=== PATIENT | female | born 1990 | race Caucasian/White ===

== ENCOUNTER 2017-04-07 15:32 | Inpatient (IN) | payer BC, OTHER ==
[~2017-04-07] VITALS: Ht 160 cm; Wt 49.9 kg
[2017-04-07 16:15] LABS: *URINE HCG, QUAL NEGATIVE (NEGATIVE)
[2017-04-07 16:39] LABS: *AMPHETAMINE, URINE NEGATIVE (NEGATIVE); *BARBITURATE, URINE NEGATIVE (NEGATIVE); *CANNABINOID, URINE NEGATIVE (NEGATIVE); *COCCAINE, URINE NEGATIVE (NEGATIVE); *OPIATE, URINE POSITIVE (NEGATIVE); *PHENCYCLIDINE SCREEN,URINE NEGATIVE (NEGATIVE)
--- NOTE | 2017-04-07 16:43 | NUR ---
PRE ASSESSMENT NOTE: 22 yo female presents to [facility] with Heroin, Xanax and Meth dependence. Pt is alert and oriented X4. Color good, skin warm and dry. Respirations even and unlabored. B/P 112/77 P 94 RR 16 T 98.3 Pulse OX 97% Pt has a hx of anxiety and depression, but does not take medication. Also has pacemaker due to congenital heart block. Pt is allergic to PCN and Amox. Denies seizure history.
[2017-04-07 16:50] VITALS: BP 112/77
--- NOTE | 2017-04-07 17:00 | NUR ---
ADMISSION NOTE: 26 yo female admitted to [facility] with Heroin, Xanax and Methamphetamine dependence. Pt is alert and oriented X4. Color good, skin warm and dry. Respirations even and unlabored. Pt states she is allergic to PCN and Amoxicillin. Pt states she has a pacemaker due to congenital heart block. Also states she has anxiety and depression. Pt has numerous abscesses on bilateral forearms. Closed. Otherwise, skin is intact. Denies having a PCP or Psychiatrist. Denies seizure history. Pt is 5 feet 3 inches tall and weighs 110. Vital signs: B/P 112/77 P 94 RR 16 T 98.2 Pulse OX 97% Substance Use: Heroin: 2g/day IV daily for 5 years. Last use this AM 1gm IV Xanax: 4mg/day X 5 years last use 04-06-17 2mg Methamphetamine: 1gm IV off and on for 10 years last use 04-06-17 0.2 gms Addendum: 04/07/17 at 1850 by CATIA RICARDO RN Initial COWS 4 CIWA 5
[2017-04-07] MEDS ORDERED: ACETAMINOPHEN 325 MG TABLET PO PRN (17:30)
[2017-04-07] MEDS ORDERED: DICYCLOMINE HCL 20 MG TABLET PO PRN (17:30)
[2017-04-07] MEDS ORDERED: HYDROXYZINE PAMOATE 25 MG CAPSULE PO PRN (17:30)
[2017-04-07] MEDS ORDERED: MAG HYDROX/AL HYDROX/SIMETH 30 ML LIQUID UDC PO PRN (17:30)
[2017-04-07] MEDS ORDERED: ONDANSETRON 4 MG/2 ML VIAL IM PRN (17:30)
[2017-04-07] MEDS ORDERED: MIRALAX 17 GM POWD.PACK PO PRN (17:30)
[2017-04-07] MEDS ORDERED: BUPRENORPHINE HCL 2 MG TAB.SUBL SL PRN (17:30)
[2017-04-07] MEDS ORDERED: LOPERAMIDE HCL 2 MG CAPSULE PO PRN ×2 (17:30)
[2017-04-07] MEDS ORDERED: ONDANSETRON ODT 4 MG TAB.RAPDIS SL PRN (17:30)
[2017-04-07] MEDS ORDERED: MAGNESIUM HYDROXIDE 30 ML LIQUID UDC PO PRN (17:30)
[2017-04-07] MEDS ORDERED: LAMO200T PO (18:31)
[2017-04-07] MEDS ORDERED: FOLI1TAB16 PO (18:31)
[2017-04-07] MEDS ORDERED: ATOM40CA PO (18:31)
--- NOTE | 2017-04-07 18:50 | NUR ---
END OF SHIFT NOTE: Report given to athletic agent nurse. 26 yo female admitted to [facility] with Heroin, Xanax and Methamphetamine dependence. Pt is alert and oriented X4. Color good, skin warm and dry. Respirations even and unlabored. Pt states she is allergic to PCN and Amoxicillin. Pt states she has a pacemaker due to congenital heart block. Also states she has anxiety and depression. Pt has numerous abscesses on bilateral forearms. COWS 4 CIWA 5 @ 1700. Safety precautions observed. Call light within reach.
[2017-04-07 20:00] VITALS: BP 111/60
--- NOTE | 2017-04-07 20:00 | NUR ---
START OF SHIFT NOTE RECEIVED PATIENT IN ROOM, RESTING. PATIENT ALERT AND ORIENTED X 3. RESPIRATION EVEN AND UNLABORED. PATIENT REPORTS ANXIOUS, SWEATING, ABDOMINAL CRAMPING , NO N/V AND GENERALIZED BODY ACHES 05/05. RECEIVED REPORT FROM DAY SHIFT NURSE. PATIENT IS A 26 YEAR OLD FEMALE NEWLY ADMITTED FOR OPIATE/BENZO DEPENDENCE. PATIENT IS ON 1ST DAY OF HER 5 DAY ATIVAN TAPER AND WILL START 5 DAY SUBUTEX TOMORROW. PATIENT IS FULL CODE, REGULAR DIET AND ALLERGIC TO PENICILLIN AND AMOXICILLIN. PATIENT REPORTS PMH OF HAVING PACEMAKER , ANXIETY AND DEPRESSION . PATIENT IS ON FALL PRECAUTION. PATIENT HAD ABSCESS ON BILATERAL FOREARMS WHICH SHE'S ON BACTIM ANTIBIOTIC. PATIENT DID NOT REQUIRE ANY PRN MEDICATION DURING THE DAY. LAST COWS 4 AND CIWA 5. SAFETY MEASURES IN PLACE. CALL LIGHT IN REACH. WILL CONTINUE TO MONITOR
--- NOTE | 2017-04-07 20:28 | NUR ---
PRN ROBAXIN ADMINISTRATION PATIENT C/O GENERALIZED BODY ACHES 05/05. PRN ROBAXIN GIVEN. WILL MONITOR FOR EFFECTIVENESS
[2017-04-07] MEDS: METHOCARBAMOL 750 MG TABLET PO PRN (20:38)
[2017-04-07] MEDS: GABAPENTIN 300 MG CAPSULE PO SCH (20:38)
[2017-04-07] MEDS: SULFAMETH/TRIMETH 800/160 MG TABLET PO SCH (20:39)
[2017-04-07] MEDS: LACTOBACILLUS RHAMNOSUS GG 1 EACH CAPSULE PO SCH (20:39)
[2017-04-07] MEDS ORDERED: LORAZEPAM 1 MG TABLET PO SCH (21:00)
--- NOTE | 2017-04-07 21:28 | NUR ---
PRN ROBAXIN RE-ASSESSMENT PATIENT REPORTS ROBAXIN HELPFUL. PAIN 2/10, TOLERABLE. WILL CONTINUE TO MONITOR.
[2017-04-08] VITALS: BP 93/56
[2017-04-08 04:00] VITALS: BP 92/51
--- NOTE | 2017-04-08 07:35 | NUR ---
END OF SHIFT NOTE MONITORED PATIENT THROUGHOUT THE NIGHT. PATIENT REMAIN ALERT AND ORIENTED X 3. RESPIRATION RECEIVED PATIENT IN ROOM MOST OF THE SHIFT. PATIENT REPORTED ANXIOUS, SWEATING, ABDOMINAL CRAMPING , NO N/V AND GENERALIZED BODY ACHES 10 DURING SHIFT. PATIENT WAS PLACED ON IS ON 5 DAY ATIVAN TAPER AND WILL START 5 DAY SUBUTEX. FIRST ATIVAN GIVEN DURING SHIFT. PATIENT IS FULL CODE, REGULAR DIET AND ALLERGIC TO PENICILLIN AND AMOXICILLIN. PATIENT REPORTS PMH OF HAVING PACEMAKER , ANXIETY AND DEPRESSION . PATIENT IS ON FALL PRECAUTION. PATIENT HAD ABSCESS ON BILATERAL FOREARMS WHICH SHE'S ON BACTRIM ANTIBIOTIC WITH NO ADVERSE REACTION NOTED. ENCOURAGE FLUIDS. PATIENT WAS GIVEN PRN ROBAXIN AT 2037, EFFECTIVE. LAST COWS 2 AND CIWA 1. SAFETY MEASURES IN PLACE. CALL LIGHT IN REACH. WILL CONTINUE TO MONITOR. SLEPT 10 HOURS. FLUID INTAKE 795 ML. VOIDED X 1. NO BM.
[2017-04-08 08:00] VITALS: BP 102/63
--- NOTE | 2017-04-08 08:00 | NUR ---
START OF SHIFT Received pt this AM aox4. Patient lying in bed and states "I don't feel good, I feel sick." Patient on 5 day Ativan/ 5 day Subutex taper. COWS 9 CIWA 6 this AM at 0800. Patient presents with flat affect and congruent mood. Patient has closed abscesses on bilat forearms and is getting Bactrim for treatment. Patient slept 10 hours. Patient was given PRN Robaxin per evening or night nurse supervisor with effectiveness. Encouraged pt to increase fluids to facilitate detox. Will provide safe and supportive environment. Patient in bed with bed locked and in lowest position and call watters in reach. Will monitor
[2017-04-08] MEDS ORDERED: TUBERCULIN,PURIF.PROT.DERIV. 5 TU/0.1 ML TEST ID ONE (09:00)
[2017-04-08] MEDS: SULFAMETH/TRIMETH 800/160 MG TABLET PO SCH ×2 (09:41→20:32)
[2017-04-08] MEDS: GABAPENTIN 300 MG CAPSULE PO SCH ×2 (09:41→20:33)
[2017-04-08] MEDS: LORAZEPAM 1 MG TABLET PO SCH ×4 (09:41→20:33)
[2017-04-08] MEDS: BUPRENORPHINE HCL 2 MG TAB.SUBL SL SCH ×4 (09:41→20:33)
[2017-04-08] MEDS: LACTOBACILLUS RHAMNOSUS GG 1 EACH CAPSULE PO SCH ×2 (09:41→20:32)
[2017-04-08] MEDS: MULTIVITAMINS,THERAPEUTIC TABLET PO SCH (09:42)
[2017-04-08 12:00] VITALS: BP 98/64
[2017-04-08 16:00] VITALS: BP 99/64
--- NOTE | 2017-04-08 18:40 | NUR ---
END OF SHIFT NOTE Patient continues on 4 day Ativan taper and started on 5 day Subutex taper this shift. Patient presents with closed abscesses on bilat forearms. Patient on Bactrim abx for treatment. Order to apply warm compress to LUE hourly if possible for 15-20 min was endorsed to hourly shift manager. Lab came to draw blood from patient and was unsuccessful, notified. Last CIWA 7 COWS 8. Patient did not attend any groups or activities this shift. All needs have been met. Safety measures in place. Will pass shift report to night nurse.
[2017-04-08 20:00] VITALS: BP 106/60
--- NOTE | 2017-04-08 20:00 | NUR ---
START OF SHIFT NOTE PATIENT IN HER ROOM RESTING. PATIENT REPORTS GENERALIZED BODY ACHES, 6/10, SWEATING, ANXIETY . NO N/V, STUFFY NOSE, MOIST EYES AND TREMORS CAN BE FELT BUT NOT OBSERVE. RECEIVED REPORT FROM DAY SHIFT NURSE. PATIENT IS A 26 YEAR OLD FEMALE, ADMITTED FOR OPIATE/BENZO DEPENDENCE. PATIENT IS ON 5 DAY ATIVAN AND 5 DAY SUBUTEX TAPER. PATIENT IS FULL CODE, REGULAR DIET AND ALLERGIC TO AMOXICILLIN AND PENICILLIN. PATIENT IS ANTIBIOTIC FOR ABSCESSES ON BILATERAL ARMS. PATIENT IN HER ROOM MOST OF THE DAY. PATIENT DID NOT REQUIRE ANY PRN MEDICATION. LAST CIWA 7 AND COWS 8. SAFETY MEASURES IN PLACE. CALL LIGHT IN REACH. WILL CONTINUE TO MONITOR.
[2017-04-08] MEDS: METHOCARBAMOL 750 MG TABLET PO PRN (20:33)
--- NOTE | 2017-04-08 20:33 | NUR ---
PRN ROBAXIN ADMINISTRATION PATIENT REPORTS GENERALIZED BODY ACHES 5/10. PRN ROBAXIN GIVEN . WILL MONITOR FOR EFFECTIVENESS
--- NOTE | 2017-04-08 20:44 | NUR ---
PRN CLONIDINE , VISTARIL AND BENADRYL ADMINISTRATION PATIENT REPORTS ANXIETY, NOTED EMOTIONAL , DEPRESSED AND UNABLE TO SLEEP. PRN CLONIDINE , VISTARIL AND BENADRYL GIVEN. WILL MONITOR FOR EFFECTIVENESS
--- NOTE | 2017-04-08 21:33 | NUR ---
PRN ROBAXIN RE-ASSESSMENT PATIENT STATES ROBAXIN IS HELPFUL. PAIN LEVEL 2/10, TOLERABLE. WILL CONTINUE TO MONITOR
--- NOTE | 2017-04-08 21:44 | NUR ---
PRN CLONIDINE, VISTARIL,BENADRYL RE-ASSESSMENT PATIENT IN BED WITH EYES CLOSED. NO S/S OF DISTRESS. RESPIRATION EVEN AND UNLABORED. SAFETY MEASURES IN PLACE. CALL LIGHT IN REACH. WILL CONTINUE TO MONITOR
[2017-04-08] MEDS: CLONIDINE HCL 0.1 MG TABLET PO PRN (22:44)
[2017-04-08] MEDS: diphenhydrAMINE 50 MG CAPSULE PO PRN (22:44)
[2017-04-09] VITALS: BP 114/75
[2017-04-09 04:00] VITALS: BP 90/57
--- NOTE | 2017-04-09 07:15 | NUR ---
END OF SHIFT NOTE PATIENT REPORTED GENERALIZED BODY ACHES, 6/10, SWEATING, ANXIETY . NO N/V, STUFFY NOSE, MOIST EYES AND TREMORS CAN BE FELT BUT NOT OBSERVE DURING SHIFT. PATIENT CONTINUE ON 5 DAY ATIVAN AND 5 DAY SUBUTEX TAPER, TOLERATED WELL. PATIENT IS ANTIBIOTIC FOR ABSCESSES ON BILATERAL ARMS WITH NO ADVERSE REACTION NOTED AND WAS SEEN BY DR. LOZADA. PER DR. LOZADA TO CONTINUE WARM MOIST COMPRESS . PATIENT WAS GIVEN PRN ROBAXIN AT 2032. AT 2243, PATIENT C/O ANXIETY, EMOTIONAL AND UNABLE TO SLEEP. PRN VISTARIL, CLONIDINE AND BENADRYL GIVEN, ALL EFFECTIVE. ON FALL PRECAUTION. SAFETY MEASURES IN PLACE. CALL LIGHT IN REACH. WILL CONTINUE TO MONITOR. SLEPT 9 HOURS. FLUID INTAKE 547 ML. VOIDED X 1. NO BM. LAST COWS 1 AND CIWA 1 .
--- NOTE | 2017-04-09 07:40 | NUR ---
START OF SHIFT Received pt this AM aox4. Patient lying in bed and appears very fatigued. Patient on 5 day Ativan/ 5 day Subutex taper. COWS 1 CIWA 1 per night nurse. Patient presents with flat affect and congruent mood. Patient has closed abscesses on bilat forearms and is getting Bactrim for treatment and warm compresses need to be applied per Dr. Thurston. Patient slept 9 hours. Patient was given PRN Robaxin, Clonidine, Vistaril, and Benadryl per power and recovery shift engineer with effectiveness. Encouraged pt to increase fluids to facilitate detox. Encouraged pt to attend groups and activities. Will provide safe and supportive environment. Patient in bed with bed locked and in lowest position and call watters in reach. Will monitor
[2017-04-09 08:00] VITALS: BP 98/61
[2017-04-09] MEDS: MULTIVITAMINS,THERAPEUTIC TABLET PO SCH (09:51)
[2017-04-09] MEDS: LORAZEPAM 1 MG TABLET PO SCH ×3 (09:52→21:21)
[2017-04-09] MEDS: GABAPENTIN 300 MG CAPSULE PO SCH ×2 (09:52→21:21)
[2017-04-09] MEDS: SULFAMETH/TRIMETH 800/160 MG TABLET PO SCH ×2 (09:52→21:21)
[2017-04-09] MEDS: BUPRENORPHINE HCL 2 MG TAB.SUBL SL SCH ×3 (09:52→21:20)
[2017-04-09] MEDS: LACTOBACILLUS RHAMNOSUS GG 1 EACH CAPSULE PO SCH ×2 (09:52→21:21)
--- NOTE | 2017-04-09 09:54 | NUR ---
Warm compress applied to patient's bilateral abscesses. Patient aware to leave it applied for 20 minutes. Will continue to monitor.
[2017-04-09 10:54] LABS: BASOPHILS % (AUTO) 0.5 % (0.0-2.0); EOSINOPHILS % (AUTO) 0.3 % (0.0-7.0); HEMATOCRIT 39.7 % (37-47); HEMOGLOBIN 13.7 G/DL (12.0-16.0); LYMPHOCYTES # (AUTO) 1.9 K/UL (0.8-4.8); LYMPHOCYTES % (AUTO) 37.8 % (20.5-51.5); MEAN CORPUSCULAR HEMOGLOBIN 31.1 UUG (27.0-31.0); MEAN CORPUSCULAR HGB CONC 35 g/dL (32.0-37.0); MEAN CORPUSCULAR VOLUME 90.3 FL (81.0-99.0); MONOCYTES # (AUTO) 0.3 K/UL (0.1-1.30); MONOCYTES % (AUTO) 5.7 % (0.0-11.0); NEUTROPHILS # (AUTO) 2.8 K/UL (1.8-8.9); NEUTROPHILS % (AUTO) 55.7 % (38.5-71.5); PLATELET COUNT (AUTO) 262 K/UL (150-450); RED CELL DISTRIBUTION WIDTH 11.9 % (11.5-14.5)
[2017-04-09 11:02] LABS: ALBUMIN 3.5 g/dL (3.4-5.0); BILIRUBIN,TOTAL 0.3 mg/dL (0.2-1.0); CALCIUM 8.7 mg/dL (8.5-10.1); CREATININE 1.1 mg/dL (0.6-1.3); MAGNESIUM 1.9 mg/dL (1.8-2.4); POTASSIUM 4.2 mmol/L (3.5-5.1)
[2017-04-09 12:00] VITALS: BP 105/60
--- NOTE | 2017-04-09 12:22 | NUR ---
PACEMAKER CHECK CRISTHIAN FROM [employer] HERE TO ASSESS PATIENTS PACEMAKER Addendum: 04/09/17 at 1238 by CATHY GRACE RN Cristhian from [facility] pacemaker is good and has 3.5 years left. Will notify borderer Dr. Preston
[2017-04-09 12:49] LABS: HIV-1 p24 ANTIGEN NON REACTIVE (NONREACTIVE); HIV-1/2 ANTIBODY NON REACTIVE (NONREACTIVE)
[2017-04-09 13:00] LABS: THYROID STIMULATING HORMONE 0.771 mIU/mL (0.358-3.740)
[2017-04-09 16:00] VITALS: BP 97/60
[2017-04-09] MEDS ORDERED: LORAZEPAM 1 MG TABLET PO ONE (18:00)
--- NOTE | 2017-04-09 18:51 | NUR ---
END OF SHIFT NOTE Patient continues on 4 day Ativan taper and 5 day Subutex taper tolerated well. Patient presents with closed abscesses on bilat forearms. Patient on Bactrim abx for treatment. Applied warm compress to LUE as ordered. Rep from [employer] came to assess patients pacemaker with normal findings,. notified. Last CIWA 8 COWS 6. Patient did not attend any groups or activities this shift. All needs have been met. Safety measures in place. Will pass shift report to night nurse.
--- NOTE | 2017-04-09 18:51 | NUR ---
START OF SHIFT NOTE: Patient endorsed by day shift nurse. SBAR report received. Patient is a 26 year old female admitted to [facility] for Benzodiazepines, Opioid, and Methamphetamines Dependence, placed on 5 Day Ativan Taper and 5 Day Subutex Taper started on 04/08/2017. Patient reports allergies to Penicillin. Regular diet, placed on Full Code, Fall Precautions. Patient denies Seizures History. Patient denies SI/HI. PMH: Pacemaker r/t Congenital Heart Block; Anxiety, Depression. Patient reports Recent Hospitalization/Treatment at" [facility]", [place], 2014; "[facility]", [place] , 2017. Upon endorsement patient is A&Ox4. Speech is clear and soft. CIWA = 8, COWS = 6: Patient reports anxiety, nervousness, sweats , bone aches, tremors that can't felt. . Patient denies N/V, and diarrhea. VS: T:98'1; HR:83; RR: 18; Room Air SPO2 100%; Low back pain level "5/10". Respirations are even and unlabored. Patient denies SOB, cough and chest pain. Bowel Sounds are active in all 4 quadrants. Last BM was "04/09/17, in the morning". Abdomen is soft and non-distended, non-tender. Skin is warm and moist by touch. Patient has abscesses on the Left and Right upper extremities. Warm compresses applied and Bactrim PO administrated as ordered. Patient remains compliant with medications and diet regime. Encouraged fluid intake, as tolerated. Encouraged to attend activities. Education provided on Hand Washing and Smoking Cessation. Patient verbalizes understanding. Patient did not Safety measures in the place by hospital policy: call light within reach, bed in the lowest position and locked, bed padded rails up x2. Will continue to monitor closely.
[2017-04-09 20:00] VITALS: BP 107/62
[2017-04-09] MEDS: diphenhydrAMINE 50 MG CAPSULE PO PRN (21:21)
[2017-04-10] VITALS: BP 90/50
[2017-04-10 04:00] VITALS: BP 86/42
--- NOTE | 2017-04-10 07:10 | NUR ---
END OF SHIFT NOTE: Patient endorsed to day shift nurse. SBAR report given. Patient is a 26 year old female admitted to [facility] for Benzodiazepines, Opioid, and Methamphetamines Dependence, placed on 5 Day Ativan Taper and 5 Day Subutex Taper started on 04/08/2017. Patient reports allergies to Penicillin. Regular diet, placed on Full Code, Fall Precautions. Patient denies Seizures History. Patient denies SI/HI. PMH: Pacemaker r/t Congenital Heart Block; Anxiety, Depression. Patient reports Recent Hospitalization/Treatment at" [facility]", [place], 2015; "[facility]", [place] , 2017. Upon endorsement patient is A&Ox4. Speech is clear and soft. CIWA decreased from 6 to 4; , COWS decreased from 5 to 3: Patient presented with anxiety, nervousness, sweats , bone aches, tremors that can't felt, and headache. Patient denies N/V, and diarrhea. Patient denies SI/HI. Respirations are even and unlabored. Patient denies SOB, cough and chest pain. Skin is warm and moist by touch. Patient has abscesses on the Left and Right upper extremities. Warm compresses applied and Bactrim PO administrated as ordered. Patient has ordered procedure for Incision and drainage of left Upper Extremity Abscess. Consent signed by patient . Patient remains compliant with medications and diet regime. Encouraged fluid intake, as tolerated. Encouraged to attend activities. ". Last shift CIWA decreased from 6 to 3; COWS decreased from 5 to 3: Patient presented with anxiety, agitation, nervousness, sweats , bone aches, tremors that can't felt, and headache. Patient denies N/V, and diarrhea. VS WNL. Respirations are even and unlabored. Patient denies SOB, cough and chest pain Patient remains compliant with the treatment plan. Pt denies nausea, vomiting and diarrhea. PRN Benadryl PO given during film processing shift supervisor and was effective: Patient slept 8 hours. VS remains WNL. Intake 2,355 ml, voided x 2. Safety measures in place, bed on lowest position with side rails x2 up for safety, call light within reach. Patient endorsed in stable condition to day shift nurse. Addendum: 04/11/17 at 0048 by VIRY MEJIA RN Patient presents with tremors that can felt.
[2017-04-10 08:00] VITALS: BP 103/61
--- NOTE | 2017-04-10 08:00 | NUR ---
START OF SHIFT Received pt this AM aox4. Patient lying in bed and appears very fatigued. Patient on 5 day Ativan/ 5 day Subutex taper. COWS 3 CIWA 4 per night nurse. Patient presents with flat affect and congruent mood. Patient has closed abscesses on bilateral forearms and is getting Bactrim for treatment and warm compresses need to be applied per Dr. Thurston. Consent signed for drainage procedure today. Patient slept 7.5 hours. No PRN given last night. Encouraged pt to increase fluids to facilitate detox. Encouraged pt to attend groups and activities. Will provide safe and supportive environment. Patient in bed with bed locked and in lowest position and call watters in reach. Will monitor
[2017-04-10] MEDS ORDERED: BUPRENORPHINE HCL 2 MG TAB.SUBL SL SCH (09:00)
[2017-04-10] MEDS: GABAPENTIN 300 MG CAPSULE PO SCH ×3 (09:07→20:34)
[2017-04-10] MEDS: SULFAMETH/TRIMETH 800/160 MG TABLET PO SCH ×2 (09:07→20:34)
[2017-04-10] MEDS: MULTIVITAMINS,THERAPEUTIC TABLET PO SCH (09:07)
[2017-04-10] MEDS: LACTOBACILLUS RHAMNOSUS GG 1 EACH CAPSULE PO SCH ×2 (09:07→20:34)
[2017-04-10] MEDS: LORAZEPAM 1 MG TABLET PO SCH ×4 (09:09→20:34)
[2017-04-10 11:07] LABS: HCV AB >11.0 s/co ratio (0.0-0.9); HEPATITIS B CORE AB, IgM Negative (Negative); HEPATITIS B SURFACE AG Negative (Negative)
[2017-04-10] MEDS: METHOCARBAMOL 750 MG TABLET PO PRN (11:55)
[2017-04-10 12:00] VITALS: BP 90/66
--- NOTE | 2017-04-10 12:00 | NUR ---
PRN MEDS PRN Robaxin given per pt request for body aches 04/04. Will reassess
--- NOTE | 2017-04-10 12:37 | NUR ---
PRN REASSESSMENT Patient states medication was helpful and body aches are now 0/10 will continue to monitor
[2017-04-10] MEDS: BACLOFEN 10 MG TABLET PO SCH ×2 (14:22→20:33)
[2017-04-10] MEDS: BUPRENORPHINE HCL 2 MG TAB.SUBL SL SCH ×2 (14:23→20:33)
[2017-04-10 16:00] VITALS: BP 98/67
--- NOTE | 2017-04-10 18:31 | NUR ---
END OF SHIFT NOTE Patient continues on 4 day Ativan taper and 5 day Subutex taper tolerated well. Patient presented with brighter affect during the day shift and socialized with peers. Patient presents with closed abscesses on bilateral forearms. Patient on Bactrim abx for treatment. Applied warm compress to LUE as ordered. Robaxin was given PRN for body aches with effectiveness. Last CIWA 7 COWS 6. TB test read and was negative. Patient attended group and activities this shift. All needs have been met. Safety measures in place. Will pass shift report to night nurse.
--- NOTE | 2017-04-10 18:31 | NUR ---
START OF SHIFT NOTE: Patient endorsed by day shift nurse. SBAR report received. Patient is a 26 year old female admitted to [facility] for Benzodiazepines, Opioid, and Methamphetamines Dependence, placed on 5 Day Ativan Taper and 5 Day Subutex Taper started on 04/08/2017. Patient reports allergies to Penicillin. Regular diet, placed on Full Code, Fall Precautions. Patient denies Seizures History. Patient denies SI/HI. PMH: Pacemaker r/t Congenital Heart Block; Anxiety, Depression. Patient reports Recent Hospitalization/Treatment at" [facility][1]", [place], 2015; "[facility]", [place] , 2017. Upon endorsement patient is A&Ox4. Speech is clear and soft. CIWA = 7, COWS = 7: Patient presents with anxiety, agitation, nervousness, sweats , body aches, tremors that can't felt. Patient denies N/V, and diarrhea. Patient denies SI/HI. VS stable. Knee pain level "3/10". Respirations are even and unlabored. Patient denies SOB, cough and chest pain. Bowel Sounds are active in all 4 quadrants. Last BM was "04/10/17, in the morning". Abdomen is soft and non-distended, non-tender. Skin is warm and moist by touch. Patient has abscesses on the Left and Right upper extremities. Warm compresses applied and Bactrim PO administrated as ordered. Patient remains compliant with medications and diet regime. Encouraged fluid intake, as tolerated. Encouraged to attend activities. Safety measures in the place by hospital policy: call light within reach, bed in the lowest position and locked, bed padded rails up x2. Will continue to monitor closely. Addendum: 04/11/17 at 0050 by VIRY MEJIA RN Patient presents with tremors that can felt.
[2017-04-10 20:00] VITALS: BP 114/70
[2017-04-10] MEDS: IBUPROFEN 600 MG TABLET PO PRN (20:42)
[2017-04-10] MEDS: diphenhydrAMINE 50 MG CAPSULE PO PRN (20:42)
--- NOTE | 2017-04-10 20:42 | NUR ---
PRN MOTRIN PO AND BENADRYL PO ADMINISTRATION Patient c/o "Knee pain 3/10" and insomnia. Patient was assessed. VS WNL. PRN Motrin PO and PRN Benadryl PO discussed with patient. Patient educated for actions, adverse reactions, and side effects of Motrin and Benadryl. Patient returned back knowledge by verbalizes understanding. PRN Motrin 600 mg PO and PRN Benadryl 50 mg PO administrated with full glass of water as ordered. Patient tolerated well. Safety measure in the place by hospital policy: Call light within reach, bed in the lowest position and locked, padded rails up x2. Will continue to monitor closely.
--- NOTE | 2017-04-10 21:42 | NUR ---
REASSESSMENT Patient is sleeping. Breathing is even and unlabored. RR: 14. PRN PRN Motrin PO and PRN Benadryl PO were effective. Safety measure in the place by hospital policy: Call light within reach, bed in the lowest position and locked, padded rails up x2. Will continue to monitor closely.
[2017-04-11] VITALS: BP 95/50
[2017-04-11 04:00] VITALS: BP 91/60
--- NOTE | 2017-04-11 05:41 | NUR ---
PRN ROBAXIN ADMINISTRATION PATIENT C/O PAIN ON LEFT UE S/P I&D. 04/04. PRN ROBAXIN GIVEN . WILL MONITOR FOR EFFECTIVENESS
[2017-04-11] MEDS: METHOCARBAMOL 750 MG TABLET PO PRN ×2 (06:57→15:02)
--- NOTE | 2017-04-11 06:57 | NUR ---
PRN ROBAXIN ADMINISTRATION Patient c/o muscle spasm and requested Robaxin. PRN Robaxin administrated as ordered with full glass of water. Patient tolerated well. Safety measure in the place by hospital policy. Call light within reach, bed in the lowest position and locked, padded rails up x2. Will monitor closely.
--- NOTE | 2017-04-11 07:12 | NUR ---
END OF SHIFT NOTE: Patient endorsed to day shift nurse in stable condition. Report given. Patient is a 26 year old female admitted to [facility] for Benzodiazepines, Opioid, and Methamphetamines Dependence, placed on 5 Day Ativan Taper and 5 Day Subutex Taper started on 04/08/2017. Patient reports allergies to Penicillin and Regular diet Patient placed on Full Code, Fall Precautions. Patient denies Seizures History. During last warehouse supervisor 3rd shift CIWA decreased from 7 to 3, COWS decreased from 7 to 3. Patient presented with withdrawal s/s of anxiety, agitation, nervousness, sweats , body aches, tremors that can be felt, and mild headache. Patient denies N/V, and diarrhea. Patient denies SI/HI. VS at 04:00: T: 98'4; HR: 82; RR: 12; RA O2Sat: 98%; BP: 91/60; Pain level: "0/10". Respirations are even and unlabored. Patient denies SOB, cough and chest pain. Skin is warm and moist by touch. Patient has abscesses on the Left and Right upper extremities. Warm compresses applied, and Bactrim PO administrated as ordered. Ordered procedure for Incision and drainage of left Upper Extremity Abscess done by Dr. Bertrand ELAM. Consent was signed by patient before procedure. Patient tolerated well. Patient remains compliant with medications and diet regime. Encouraged fluid intake, as tolerated. Encouraged to attend activities. PRN Benadryl PO and PRN Motrin PO administrated to patient as ordered, and were effective. PRN Robaxin PO administrated at 06:57. Day shift nurse notified, and patient will reassessed by Day shift nurse. Patient slept 7 hours. Intake 2,210 ml, voided x 2. Safety measure in the place by hospital policy. Call light within reach, bed in the lowest position and locked, padded rails up x2.
[2017-04-11 08:00] VITALS: BP 94/53
[2017-04-11] MEDS: GABAPENTIN 300 MG CAPSULE PO SCH ×3 (09:57→21:16)
[2017-04-11] MEDS: LACTOBACILLUS RHAMNOSUS GG 1 EACH CAPSULE PO SCH ×2 (09:57→21:17)
[2017-04-11] MEDS: MULTIVITAMINS,THERAPEUTIC TABLET PO SCH (09:57)
[2017-04-11] MEDS: SULFAMETH/TRIMETH 800/160 MG TABLET PO SCH ×2 (09:57→21:17)
[2017-04-11] MEDS: BACLOFEN 10 MG TABLET PO SCH ×3 (09:57→21:17)
--- NOTE | 2017-04-11 10:00 | NUR ---
START OF SHIFT Received report from restaurant shift supervisor nurse. Received patient laying in bed. Patient is 26 year old female admitted for medically supervised withdrawal from heroin and alprazolam. Patient is full code, allergic to penicillin, amoxicillin. On fall precaution. On 5 Day Ativan and 5-Day Subutex taper. On assessment this AM: CIWA: 4 and COWS: 3. Patient reports body aches and anxiety. Ativan and Subutex po given as ordered. Med compliant. Patient was encouraged to attend group meetings today. Will continue to monitor patient.
[2017-04-11] MEDS: BUPRENORPHINE HCL 2 MG TAB.SUBL SL SCH ×3 (10:02→21:17)
[2017-04-11] MEDS: LORAZEPAM 1 MG TABLET PO SCH ×3 (10:03→21:16)
[2017-04-11 13:09] VITALS: BP 109/68
--- NOTE | 2017-04-11 14:02 | NUR ---
REASSESSMENT ONDANSETRON Patient reports nausea resolved.
--- NOTE | 2017-04-11 15:02 | NUR ---
PRN ONDANSETRON ODT Patient complained of n/v, vomited X1 after lunch, PRN ondansetron given. Will continue to monitor patient.
[2017-04-11 16:00] VITALS: BP 119/53
--- NOTE | 2017-04-11 19:15 | NUR ---
END OF SHIFT Patient is 26 year old female admitted for medically supervised withdrawal from heroin and alprazolam. Patient is full code, allergic to penicillin, amoxicillin. On fall precaution. On 5 Day Ativan and 5-Day Subutex taper. Most recent CIWA: 5 and COWS: 4. Patient reports tactile hallucinations, mild nausea but able to tolerate her foods. It was reported by nursing staff that she would vomit her food after dinner because she did not want to gain weight. Patient reports feeling better with the medications given to her during shift, she was noted smiling, walking around in the hallway in the afternoon. Med compliant. Will continue to monitor patient. Addendum: 04/11/17 at 1926 by RONY PATEL RN Wound assessment and dressing done. Packing in place, redress wound with 4X4 dressing and secured with tegaderm dressing. No bleeding or drainage noted.
[2017-04-11 20:00] VITALS: BP 109/65
--- NOTE | 2017-04-11 20:00 | NUR ---
START OF SHIFT NOTE PATIENT ALERT AND ORIENTED X 4. RESPIRATION EVEN AND UNLABORED. LUNGS CLEAR AND BOWEL SOUNDS ACTIVE. ABDOMEN NON - DISTENDED. PATIENT C/O ANXIETY, SWEATING, NO N/V, C/O PAIN ON LEFT UE S/P I&D 03/05. RECEIVED REPORT FROM DAY SHIFT NURSE. PATIENT IS A 26 YEAR OLD FEMALE, ADMITTED FOR OPIATE/BENZO DEPENDENCE. PATIENT IS ON 4TH DAY OF HER 5 DAY ATIVAN AND 5 DAY SUBUTEX TAPER. PATIENT IS FULL CODE, REGULAR DIET AND ALLERGIC TO PENICILLIN AND AMOXICILLIN. PATIENT S/P I&D ON LEFT UE . ON BACTRIM ANTIBIOTIC THERAPY . PATIENT WAS GIVEN PRN ZOFRAN DURING THE DAY. LAST CIWA 5 AND COWS 4. PATIENT WAS HEP C+ BASED ON LAB ON 04/09/17. DR. HORNE AWARE AND ORDERED LABS. ON FALL PRECAUTION. SAFETY MEASURES IN PLACE. CALL LIGHT IN REACH. WILL CONTINUE TO MONITOR
[2017-04-11] MEDS: IBUPROFEN 600 MG TABLET PO PRN (21:17)
--- NOTE | 2017-04-11 21:17 | NUR ---
PRN MOTRIN ADMINISTRATION PATIENT C/O LEFT ARM PAIN (S/P I&D) 03/05. PRN MOTRIN GIVEN. WILL MONITOR FOR EFFECTIVENESS
[2017-04-11] MEDS: LAMOTRIGINE 25 MG TABLET PO SCH (21:21)
--- NOTE | 2017-04-11 22:17 | NUR ---
PRN MAGALIE RE-ASSESSMENT PATIENT STATES SCHMITT HELPFUL . PAIN LEVEL 2/10. TOLERABLE. WILL CONTINUE TO MONITOR.
[2017-04-12] VITALS (7 sets, daily range): BP systolic 72–118; BP diastolic 55–72
--- NOTE | 2017-04-12 00:46 | NUR ---
CORETTA SCHROEDER RE-ASSESSMENT PATIENT DENIES PAIN AT THIS TIME.PAIN LEVEL 0/10. WILL CONTINUE TO MONITOR Addendum: 04/13/17 at 0720 by JOVON TERAN LVN ERROR : CHARTING
[2017-04-12] MEDS: METHOCARBAMOL 750 MG TABLET PO PRN ×3 (05:41→23:46)
--- NOTE | 2017-04-12 06:41 | NUR ---
CORETTA SCHROEDER RE-ASSESSMENT PATIENT IN BED WITH EYES CLOSED. NO FACIAL GRIMACING. NO S/S OF DISTRESS. WILL CONTINUE TO MONITOR.
--- NOTE | 2017-04-12 07:20 | NUR ---
END OF SHIFT NOTE PATIENT REMAIN ALERT AND ORIENTED X 4. RESPIRATION EVEN AND UNLABORED. LUNGS CLEAR AND BOWEL SOUNDS ACTIVE. ABDOMEN NON-DISTENDED. PATIENT C/O ANXIETY, SWEATING, NO N/V, C/O PAIN ON LEFT UE S/P I&D 03/05.PATIENT CONTINUE ON 5 DAY ATIVAN AND 5 DAY SUBUTEX TAPER, TOLERATED WELL. NO ADVERSE REACTION. PATIENT S/P I&D ON LEFT UE . ON BACTRIM ANTIBIOTIC THERAPY WITH NO ADVERSE REACTION. ENCOURAGE FLUIDS, PATIENT WAS GIVEN PRN MOTRIN AT 2117 FOR PAIN ON HER LEFT UE AT ROBAXIN AT 0541. PATIENT REQUESTED TO HAVE HER DRESSING CHANGE BUT REFUSED TO CHANGE THE PACKING , EXPLAINED RISKS AND BENEFITS BUT STILL REFUSED. PATIENT HEP C + AND DR. HORNE AWARE AND ORDERED LABS. ON FALL PRECAUTION. SAFETY MEASURES IN PLACE. CALL LIGHT IN REACH. WILL CONTINUE TO MONITOR. SLEPT 6 HOURS. FLUID INTAKE 1,000 ML. VOIDED X 2. NO BM LAST COWS 2 AND CIWA 1.
[2017-04-12] MEDS: ESCITALOPRAM OXALATE 10 MG TABLET PO SCH (09:44)
[2017-04-12] MEDS: MULTIVITAMINS,THERAPEUTIC TABLET PO SCH (09:44)
[2017-04-12] MEDS: BACLOFEN 10 MG TABLET PO SCH ×3 (09:44→20:45)
[2017-04-12] MEDS: GABAPENTIN 300 MG CAPSULE PO SCH ×3 (09:44→20:45)
[2017-04-12] MEDS: LACTOBACILLUS RHAMNOSUS GG 1 EACH CAPSULE PO SCH (09:44)
[2017-04-12] MEDS: LORAZEPAM 1 MG TABLET PO SCH ×2 (09:44→20:45)
[2017-04-12] MEDS: SULFAMETH/TRIMETH 800/160 MG TABLET PO SCH (09:44)
[2017-04-12] MEDS: LAMOTRIGINE 25 MG TABLET PO SCH ×2 (09:44→20:45)
[2017-04-12] MEDS: BUPRENORPHINE HCL 2 MG TAB.SUBL SL SCH ×2 (09:45→20:45)
--- NOTE | 2017-04-12 10:00 | NUR ---
START OF SHIFT Received report from [facility] mk 2 advanced operator nurse. Received patient laying in bed with eyes closed. Patient is 26 year old female admitted for medically supervised withdrawal from heroin and alprazolam. Patient is full code, allergic to penicillin, amoxicillin. On fall precaution. On 5 Day Ativan and 5-Day Subutex taper. On assessment this AM: CIWA: 2 and COWS: 2. Patient reports body aches, anxiety, mild tactile hallucination on BUE and BLE. Ativan and Subutex po given as ordered. Med compliant. Did not eat her breakfast, encouraged to hydrate with lots of fluids, pt. is compliant. Patient was encouraged to attend group meetings today. Will continue to monitor patient.
--- NOTE | 2017-04-12 14:51 | NUR ---
ONE TIME ATIVAN NOTE One time Ativan 1mg po provided to patient as ordered. CIWA: 5. Patientr anxious about the lab draw and wound care. Will continue to monitor patient.
[2017-04-12] MEDS: SODIUM HYPOCHLORITE 0.125% 473 ML BOTTLE TP SCH (14:52)
[2017-04-12] MEDS ORDERED: LORAZEPAM 1 MG TABLET PO ONE (15:00)
--- NOTE | 2017-04-12 15:18 | NUR ---
PRN METHOCARBAMOL AND TYLENOL Patient complained of pain on LFA after wound care, 06/04. PRN methocarbamol and Tylenol provided. Will continue to monitor patient.
[2017-04-12 15:25] LABS: BASOPHILS % (AUTO) 0.4 % (0.0-2.0); EOSINOPHILS % (AUTO) 0.2 % (0.0-7.0); HEMATOCRIT 42.9 % (37-47); HEMOGLOBIN 13.8 G/DL (12.0-16.0); LYMPHOCYTES # (AUTO) 1.8 K/UL (0.8-4.8); LYMPHOCYTES % (AUTO) 29.7 % (20.5-51.5); MEAN CORPUSCULAR HEMOGLOBIN 29.1 UUG (27.0-31.0); MEAN CORPUSCULAR HGB CONC 32 g/dL (32.0-37.0); MEAN CORPUSCULAR VOLUME 90.6 FL (81.0-99.0); MONOCYTES # (AUTO) 0.3 K/UL (0.1-1.30); MONOCYTES % (AUTO) 4.5 % (0.0-11.0); NEUTROPHILS # (AUTO) 3.8 K/UL (1.8-8.9); NEUTROPHILS % (AUTO) 65.2 % (38.5-71.5); PLATELET COUNT (AUTO) 256 K/UL (150-450); RED BLOOD CELL COUNT(AUTO) 4.73 MIL/UL (4.2-5.4); RED CELL DISTRIBUTION WIDTH 11.5 % (11.5-14.5); WHITE BLOOD COUNT (AUTO) 5.9 K/UL (4.0-11.2)
[2017-04-12 15:32] LABS: CALCIUM 8.9 mg/dL (8.5-10.1); POTASSIUM 4.5 mmol/L (3.5-5.1)
--- NOTE | 2017-04-12 15:51 | NUR ---
REASSESSMENT OF ONE TIME ATIVAN Patient reports anxiety decreased. CIWA: 2.
--- NOTE | 2017-04-12 16:18 | NUR ---
REASSESSMENT (METHOCARBAMOL AND TYLENOL) Patient reported pain level decreased to 4/10.
--- NOTE | 2017-04-12 19:26 | NUR ---
END OF SHIFT Patient is 26 year old female admitted for medically supervised withdrawal from heroin and alprazolam. Patient is full code, allergic to penicillin, amoxicillin. On fall precaution. On 5 Day Ativan and 5-Day Subutex taper. It was reported by nursing staff that patient vomits her food after meal, keno writer / runner spoke to patient and confirmed that she induces vomiting because of feelings of fullness after each meal and confirmed it is not related to her withdrawals. Wound care done as ordered, wet dressing, wound packed with 2X2 gauze with Dakins solutions and covered with dry gauze. Patient tolerated procedure, requested for pain med after procedure. Patient is med compliant this shift. Cooperative with lab draw. Most recent CIWA: 2 and COWS: 2. cabin outfittersr vice president will continue to monitor patient.
--- NOTE | 2017-04-12 20:00 | NUR ---
START OF SHIFT NOTE PATIENT ALERT AND ORIENTED X 4. RESPIRATION EVEN AND UNLABORED. PATIENT DENIES ANY PAIN AT THIS TIME. NO N/V. PATIENT REPORT ANXIOUS BUT STATES SHE FEELS MUCH BETTER. LEFT ARM POST I&D DRESSING INTACT. RECEIVED REPORT FROM DAY SHIFT NURSE. PATIENT IS A 26 YEAR OLD FEMALE, ADMITTED FOR OPIATE/BENZO DEPENDENCE. CONTINUE ON 5 DAY ATIVAN AND 5 DAY SUBUTEX TAPER, TOLERATED WELL. PATIENT IS FULL CODE, REGULAR DIET AND ALLERGIC TO PENICILLIN AND AMOXICILLIN. PATIENT REPORTS PMH OF ANXIETY, DEPRESSION , WITH PACEMAKER (CONGENITAL HEART BLOCK) AND HEP C. PATIENT IS ON FALL PRECAUTION. PATIENT S/P I&D ON LEFT ARM WITH TREATMENT. ON FALL PRECAUTION . PATIENT WAS GIVEN ONE TIME ATIVAN , PRN TYLENOL AND ROBAXIN DURING THE DAY. LAST CIWA 2 AND COWS 2. SAFETY MEASURES IN PLACE. CALL LIGHT IN REACH. WILL CONTINUE TO MONITOR.
--- NOTE | 2017-04-12 20:23 | NUR ---
CORETTA WOOETNDeepak [facility] PATIENT REQUEST FOR SLEEP AID. WILL MONITOR FOR EFFECTIVENESS Addendum: 04/13/17 at 0408 by JOVON TERAN LVN ERROR : THIS CHARTING IS FOR ANOTHER PATIENT
--- NOTE | 2017-04-12 23:46 | NUR ---
PRN ROBAXIN ADMINISTRATION PATIENT C/O BODY ACHES 04/04. PRN ROBAXIN GIVEN . WILL MONITOR FOR EFFECTIVENESS
[2017-04-13] VITALS: BP 117/81
--- NOTE | 2017-04-13 00:46 | NUR ---
CORETTA SCHROEDER RE-ASSESSMENT PATIENT DENIES PAIN AT THIS TIME.PAIN LEVEL 0/10. WILL CONTINUE TO MONITOR
[2017-04-13 03:06] LABS: *CODEINE Positive (.); *HYDROMORPHONE Negative (Cutoff=300); *OPIATES Positive ng/mL (Cutoff=300)
[2017-04-13 04:00] VITALS: BP 104/66
--- NOTE | 2017-04-13 07:08 | NUR ---
END OF SHIFT NOTE PATIENT REMAIN ALERT AND ORIENTED X 4. RESPIRATION EVEN AND UNLABORED. PATIENT DENIES ANY PAIN , NO N/V. PATIENT REPORTED ANXIOUS BUT STATES HE FEEL MUCH BETTER DURING SHIFT. LEFT ARM POST I&D DRESSING INTACT. CONTINUE PATIENT ON 5 DAY ATIVAN AND 5 DAY SUBUTEX TAPER, TOLERATED WELL. NO ADVERSE REACTION. PATIENT IS ON FALL PRECAUTION. PATIENT S/P I&D ON LEFT ARM WITH TREATMENT. ON FALL PRECAUTION . PATIENT WAS GIVEN PRN ROBAXIN FOR BODY ACHES AT 2346. SAFETY MEASURES IN PLACE. CALL LIGHT IN REACH. WILL CONTINUE TO MONITOR. SLEPT 5 HOURS. FLUID INTAKE 1,505 ML. VOIDED X 3. BM X 1. LAST COWS 2 AND CIWA 1.
[2017-04-13 08:03] VITALS: BP_SYST 102; BP_SYST 110; BP_DIAS 61; BP_DIAS 68
[2017-04-13] MEDS: ESCITALOPRAM OXALATE 10 MG TABLET PO SCH (08:21)
[2017-04-13] MEDS: BACLOFEN 10 MG TABLET PO SCH ×3 (08:21→20:14)
[2017-04-13] MEDS: LAMOTRIGINE 25 MG TABLET PO SCH ×2 (08:21→20:13)
[2017-04-13] MEDS: MULTIVITAMINS,THERAPEUTIC TABLET PO SCH (08:21)
[2017-04-13] MEDS: GABAPENTIN 300 MG CAPSULE PO SCH ×3 (08:21→20:14)
--- NOTE | 2017-04-13 08:23 | NUR ---
START OF SHIFT Received pt this AM aox4. Patient presents with bright affect and happier mood. Patient on 5 day Ativan/ 5 day Subutex taper. COWS 2 CIWA 1 per night nurse. Patient is scheduled for wound packing qshift.. Patient was given PRN Robaxin per residential youth counselor with effectiveness. Encouraged pt to attend groups and activities. Will provide safe and supportive environment. Patient in bed with bed locked and in lowest position and call watters in reach. Will monitor
[2017-04-13] MEDS ORDERED: BUPRENORPHINE HCL 2 MG TAB.SUBL SL SCH (09:00)
[2017-04-13] MEDS ORDERED: LORAZEPAM 1 MG TABLET PO SCH (09:00)
[2017-04-13] MEDS: SODIUM HYPOCHLORITE 0.125% 473 ML BOTTLE TP SCH (09:59)
[2017-04-13 12:00] VITALS: BP 105/65
--- NOTE | 2017-04-13 13:00 | NUR ---
Wound packed and dressed and tolerated well
[2017-04-13] MEDS: DICYCLOMINE HCL 20 MG TABLET PO SCH ×2 (15:15→20:13)
[2017-04-13] MEDS ORDERED: IBUPROFEN 800 MG TABLET PO ONE (15:15)
[2017-04-13] MEDS: HYDROXYZINE PAMOATE 25 MG CAPSULE PO SCH ×3 (15:15→20:14)
[2017-04-13] MEDS: CLONIDINE HCL 0.1 MG TABLET PO PRN (15:45)
--- NOTE | 2017-04-13 15:46 | NUR ---
PRN MEDS prn clonidine given for c/o anxiety. blood pressure stable. will reassess
[2017-04-13 16:00] VITALS: BP 105/63
--- NOTE | 2017-04-13 16:30 | NUR ---
PRN REASSESSMENT Patient reports feeling less anxious. Will continue to monitor
[2017-04-13] MEDS: METHOCARBAMOL 750 MG TABLET PO SCH ×2 (16:33→20:14)
[2017-04-13] MEDS ORDERED: IBUPROFEN 600 MG TABLET PO PRN (17:30)
--- NOTE | 2017-04-13 17:45 | NUR ---
Patient refused Vistaril and states she will take it at the 2100 dose before bedtime
[2017-04-13 18:12] LABS: *AMPHETAMINE, URINE NEGATIVE (NEGATIVE); *BARBITURATE, URINE NEGATIVE (NEGATIVE); *CANNABINOID, URINE NEGATIVE (NEGATIVE); *COCCAINE, URINE NEGATIVE (NEGATIVE); *OPIATE, URINE NEGATIVE (NEGATIVE); *PHENCYCLIDINE SCREEN,URINE NEGATIVE (NEGATIVE)
--- NOTE | 2017-04-13 18:19 | NUR ---
END OF SHIFT NOTE Patient completed 5 day Ativan/5 day Subutex taper. Patient scheduled for discharge tomorrow. UDS collected and sent to lab. Patient given PRN Clonidine with effectiveness. Wound packed and treated this shift. Last CIWA 1 COWS 2. All needs have been met. Safety measures in place. Will pass shift report to oncoming nurse
[2017-04-13] MEDS ORDERED: Gabapentin PO (19:08)
[2017-04-13] MEDS ORDERED: DICY20TA28 PO (19:08)
[2017-04-13] MEDS ORDERED: HYDR-3895 PO (19:08)
[2017-04-13] MEDS ORDERED: Ibuprofen PO (19:08)
[2017-04-13] MEDS ORDERED: ESCI10TA PO (19:08)
[2017-04-13] MEDS ORDERED: Baclofen PO (19:08)
[2017-04-13] MEDS ORDERED: CLON0.1T14 PO (19:08)
[2017-04-13 20:00] VITALS: BP 103/61
--- NOTE | 2017-04-13 20:00 | NUR ---
START OF SHIFT NOTE RECEIVED REPORT FROM DAY SHIFT NURSE. PATIENT I S A 26 YEAR OLD FEMALE, ADMITTED FOR OPIATE/BENZO DEPENDENCE. PATIENT COMPLETED HER 5 DAYS ATIVAN AND 5 DAYS SUBUTEX TAPER, TOLERATED WELL AND NO ADVERSE REACTION . PATIENT IS MEDICALLY CLEARED TO BE DISCHARGED TOMORROW. PATIENT IS FULL CODE, REGULAR DIET AND ALLERGIC TO PENICILLIN AND AMOXICILLIN. PATIENT S/P I&D ON LEFT ARM WITH WOUND TREATMENT. ON FALL PRECAUTION. SAFETY MEASURES IN PLACE. CALL LIGHT IN REACH. WILL CONTINUE TO MONITOR. SLEPT 5 HOURS. FLUID INTAKE OF 2,0000 ML. VOIDED X 3 AND NO BM. LAST COWS AND CIWA .
[2017-04-13] MEDS ORDERED: IBUPROFEN 800 MG TABLET PO PRN (22:00)
[2017-04-13] MEDS: NEOMY/BACITRAC/POLYMI OINT 28.35 GM TUBE TOP SCH (22:45)
--- NOTE | 2017-04-14 | NUR ---
VS/COWS/CIWA PATIENT REFUSED VS. EXPLAINED RISKS/BENEFITS. NO S/S OF DISTRESS. RR 14. WILL CONTINUE TO MONITOR
--- NOTE | 2017-04-14 04:00 | NUR ---
VS/COWS/CIWA PATIENT REFUSED VS. EXPLAINED RISKS/BENEFITS. NO S/S OF DISTRESS. RR 14. WILL CONTINUE TO MONITOR
--- NOTE | 2017-04-14 07:40 | NUR ---
END OF SHIFT NOTE MONITORED PATIENT THROUGHOUT HE NIGHT. PATIENT REMAIN STABLE. PATIENT COMPLETED HER 5 DAYS ATIVAN AND 5 DAYS SUBUTEX TAPER, TOLERATED WELL AND NO ADVERSE REACTION . PATIENT IS MEDICALLY CLEARED TO BE DISCHARGED TOMORROW. PATIENT COMPLIANT WITH MEDS AND TREATMENT PLAN. PATIENT IS FULL CODE, REGULAR DIET AND ALLERGIC TO PENICILLIN AND AMOXICILLIN. PATIENT S/P I&D ON LEFT ARM WITH WOUND TREATMENT.PATIENT DID NOT REQUIRE ANY PRN MEDICATION DURING SHIFT. ON FALL PRECAUTION. SAFETY MEASURES IN PLACE. CALL LIGHT IN REACH. WILL CONTINUE TO MONITOR. SLEPT 5 HOURS. FLUID INTAKE OF 2,0000 ML. VOIDED X 3 AND NO BM. LAST COWS 0 AND CIWA 0 .
--- NOTE | 2017-04-14 07:45 | NUR ---
START OF SHIFT NOTE: RECEIVED PT FROM MAINTENANCE WORKER SWIMMING POOL NURSE, PT IS IN STABLE CONDITION AT THIS TIME, PT SLEPT 5 HRS, PT'S LAST CIWA AND COWS 0. PT IS ADMITTED TO [facility] FOR OPIATE/BENZO/METH WITHDRAWAL/DEPENDENCE. WILL ASSIST PT IN DISCHARGING AND WILL CONTINUE TO MONITOR PT FOR ANY CHANGES.
[2017-04-14] MEDS: HYDROXYZINE PAMOATE 25 MG CAPSULE PO SCH (08:21)
[2017-04-14] MEDS: LAMOTRIGINE 25 MG TABLET PO SCH (08:21)
[2017-04-14] MEDS: METHOCARBAMOL 750 MG TABLET PO SCH (08:21)
[2017-04-14] MEDS: MULTIVITAMINS,THERAPEUTIC TABLET PO SCH (08:21)
[2017-04-14] MEDS: BACLOFEN 10 MG TABLET PO SCH (08:21)
[2017-04-14] MEDS: ESCITALOPRAM OXALATE 10 MG TABLET PO SCH (08:21)
[2017-04-14] MEDS: NEOMY/BACITRAC/POLYMI OINT 28.35 GM TUBE TOP SCH (08:22)
[2017-04-14] MEDS: DICYCLOMINE HCL 20 MG TABLET PO SCH (08:22)
[2017-04-14] MEDS: SODIUM HYPOCHLORITE 0.125% 473 ML BOTTLE TP SCH (08:22)
[2017-04-14] MEDS ORDERED: GABAPENTIN 300 MG CAPSULE PO SCH (09:00)
--- NOTE | 2017-04-14 09:12 | NUR ---
DISCHARGE NOTE: PT LEFT THE UNIT IN STABLE CONDITION, I AND D SITE WITHOUT S/S OF INFECTION OR ACTIVE BLEEDING, PT TEACHING WAS ADMINISTERED AND PT VERBALIZED UNDERSTANDING. PT WITHOUT PAIN, DISCOMFORT OR WITHDRAWAL SYMPTOMS. PT REFUSED TO HAVE TREATMENT DONE TO ABSCESS SITE. PT WILL BE TRANSFERRED TO MORNING SIDE VIA PRIVATE CAR.
== END 2017-04-14 09:12 | disposition home or self-care (01) | DRG 895 ==
LOC: SRC 15:32
PROVIDERS: ADMIT Internal Medicine; ATTEND Internal Medicine
PROC: HZ2ZZZZ Detoxification Services for Substance Abuse Treatment (ICD-10-PCS; principal; 2017-04-07)
PROC: 4B02XSZ Measurement of Cardiac Pacemaker, External Approach (ICD-10-PCS; 2017-04-09)
PROC: HZ41ZZZ Group Counseling for Substance Abuse Treatment, Behavioral (ICD-10-PCS; 2017-04-10)
PROC: 0H9EXZZ Drainage of Left Lower Arm Skin, External Approach (ICD-10-PCS; 2017-04-10)
DX: F11.23 Opioid dependence with withdrawal (principal); Q24.6 Congenital heart block; L02.414 Cutaneous abscess of left upper limb; L02.11 Cutaneous abscess of neck; L02.413 Cutaneous abscess of right upper limb; G43.909 Migraine, unspecified, not intractable, without status migrainosus; F13.230 Sedative, hypnotic or anxiolytic dependence with withdrawal, uncomplicated; Z88.0 Allergy status to penicillin; Z95.0 Presence of cardiac pacemaker; F90.9 Attention-deficit hyperactivity disorder, unspecified type; F41.9 Anxiety disorder, unspecified; Z81.8 Family history of other mental and behavioral disorders; L08.9 Local infection of the skin and subcutaneous tissue, unspecified; S51.832S Puncture wound without foreign body of left forearm, sequela; S51.831S Puncture wound without foreign body of right forearm, sequela; T81.4XXS Infection following a procedure, sequela; X78.8XXS Intentional self-harm by other sharp object, sequela; I80.8 Phlebitis and thrombophlebitis of other sites; Z79.899 Other long term (current) drug therapy; F32.9 Major depressive disorder, single episode, unspecified; F17.210 Nicotine dependence, cigarettes, uncomplicated; Z20.5 Contact with and (suspected) exposure to viral hepatitis
CPT/HCPCS: 36415; 70030-TC; 80307; 80361; 83735; 84443; 84703; 85025; 86592; 86705; 86803; 87340; 87521; 87806; 93005; A4663; Q0162; Q0163